=== PATIENT | female | born 1940 | race Caucasian/White ===

== ENCOUNTER 2022-04-17 12:40 | Inpatient (IN) | payer MEDICARE, OTHER ==
[~2022-04-17] VITALS: Ht 157.5 cm; Wt 68.0 kg
[2022-04-17] MEDS ORDERED: IV NS 1000 ML 500 ML IV ONE (13:30)
[2022-04-17] MEDS ORDERED: LOSA50TA39 PO (14:07)
[2022-04-17] MEDS ORDERED: LOSA1TAB15 PO (14:07)
[2022-04-17] MEDS ORDERED: LEVO75TA7 PO (14:07)
[2022-04-17 14:11] LABS: HEMATOCRIT 31.7 % (31.2-41.9); MEAN CORPUSCULAR HEMOGLOBIN 31.1 uug (24.7-32.8); PLATELET COUNT (AUTO) 219 K/uL (179-408)
[2022-04-17 14:28] LABS: CARBON DIOXIDE 25 mmol/L (21-32); CHLORIDE 102 mmol/L (98-107); CREATININE 1.5 mg/dL (0.6-1.3); GLUCOSE 189 mg/dL (74-106); POTASSIUM 3.9 mmol/L (3.5-5.1); UREA NITROGEN, BLOOD 53 mg/dL (7-18)
[2022-04-17 14:37] LABS: ALANINE AMINOTRANSFERASE 18 U/L (14-59); ALKALINE PHOSPHATASE 68 U/L (50-136); ASPARTATE AMINOTRANSFERASE 7 U/L (15-37); BILIRUBIN,DIRECT 0.1 mg/dL (0.0-0.2); BILIRUBIN,TOTAL 0.3 mg/dL (0.2-1.0); TOTAL PROTEIN, SERUM 7.2 g/dL (6.4-8.2)
[2022-04-17] MEDS ORDERED: IV NORMAL SALINE 500 ML IV ONE (15:15)
--- NOTE | 2022-04-17 16:15 | NUR ---
pt got up to use restroom with her dtr, while in bathroom she had a large bloody dark stool. notified and stool sample collected. urine collected as well, both specimens sent to lab. pt denies pain, denies dizziness or SOB. VS WNL.
[2022-04-17 16:41] LABS: *OCCULT BLOOD STOOL POSITIVE (NEGATIVE)
[2022-04-17 16:45] LABS: *BILIRUBIN,URIN NEGATIVE (NEGATIVE); *BLOOD, URINE NEGATIVE (NEGATIVE); *CLARITY,URINE CLEAR (CLEAR); *COLOR,URINE LIGHT YELLOW (YELLOW); *KETONES,URINE NEGATIVE (NEGATIVE); *UROBILINOGEN,URINE 0.2 E.U./dl (NORMAL); LEUKOCYTE ESTERASE ,URINE 1+ (NEGATIVE); NITRITE, URINE NEGATIVE (NEGATIVE); PH,URINE 5.5 (5.0-8.0); UGLUCOSE NEGATIVE (NEGATIVE)
[2022-04-17] MEDS ORDERED: PANTOPRAZOLE SODIUM IV 80 MG in IV DEXTROSE 5% 100 ML IV ONE (17:00)
--- NOTE | 2022-04-17 17:00 | NUR ---
spoke to Sindhu RN house sup for midline nurse. ETA 30 mins.
[2022-04-17 17:12] LABS: HEMATOCRIT 32.3 % (31.2-41.9); MEAN CORPUSCULAR HEMOGLOBIN 30.4 uug (24.7-32.8); MEAN CORPUSCULAR VOLUME 93.1 fL (75.5-95.3); PLATELET COUNT (AUTO) 224 K/uL (179-408)
[2022-04-17 17:30] LABS: BACTERIA,URINE FEW /HPF (NONE SEEN); RBC,URINE NONE SEEN /HPF (0-3); SQUAMOUS EPITHELIAL CELL,UR MODERATE /HPF (NONE SEEN)
--- NOTE | 2022-04-17 17:32 | NUR ---
midline nurse at bedside, pt in stable condition.
--- NOTE | 2022-04-17 17:35 | NUR ---
midline nurse inserted midline to left upper arm, pt tolerated well and line flushing with ease.
[2022-04-17] MEDS ORDERED: CEFTRIAXONE /D5W 50ML IVPB **ER PYXIS IV ONE (18:26)
[2022-04-17] MEDS ORDERED: CEFTRIAXONE 1 G in IV DEXTROSE 5% 50 ML IV ONE (18:30)
[2022-04-17] MEDS ORDERED: ENALAPRILAT DIHYDRATE 1.25 MG/1 ML VIAL IV PRN (21:00)
[2022-04-17] MEDS ORDERED: ONDANSETRON 4 MG/2 ML VIAL IV PRN (21:00)
[2022-04-17] MEDS ORDERED: ACETAMINOPHEN 650 MG SUPP.RECT RC PRN (21:00)
[2022-04-17] MEDS ORDERED: MORPHINE SULFATE 2 MG/1 ML DISP.SYRIN IV PRN (21:00)
[2022-04-17 21:30] VITALS: BP 141/70
[2022-04-17] MEDS: IV D5/ 0.9% NACL 1,000 ML IV PRN (21:39)
[2022-04-18] VITALS: BP 110/53
[2022-04-18 04:33] VITALS: BP 138/61
[2022-04-18 07:19] LABS: HEMATOCRIT 27.3 % (31.2-41.9); MEAN CORPUSCULAR HEMOGLOBIN 30.7 uug (24.7-32.8); MEAN CORPUSCULAR VOLUME 92.5 fL (75.5-95.3); PLATELET COUNT (AUTO) 190 K/uL (179-408)
[2022-04-18 07:44] LABS: THYROID STIMULATING HORMONE 1.884 mIU/mL (0.358-3.740)
[2022-04-18 07:50] LABS: BILIRUBIN,TOTAL 0.3 mg/dL (0.2-1.0); CREATININE 1.3 mg/dL (0.6-1.3); MAGNESIUM 1.5 mg/dL (1.8-2.4); PHOSPHOROUS 3.9 mg/dL (2.5-4.9); POTASSIUM 3.2 mmol/L (3.5-5.1); TOTAL PROTEIN, SERUM 6.6 g/dL (6.4-8.2)
[2022-04-18] MEDS: PANTOPRAZOLE SODIUM 40 MG VIAL IV SCH ×3 (08:27→20:13)
[2022-04-18] MEDS ORDERED: PANTOPRAZOLE SODIUM 40 MG VIAL IV SCH (09:00)
[2022-04-18] MEDS: POTASSIUM CHLORIDE 50 ML IV SCH ×5 (10:26→15:58)
[2022-04-18] MEDS: MAGNESIUM SULFATE/D5W 100 ML IV SCH ×3 (10:57→12:06)
[2022-04-18 11:14] VITALS: BP 120/67
--- NOTE | 2022-04-18 12:13 | NUR ---
Dr. Becky Sams visited patient @ 1130 hours. Educated and updated patient.
--- NOTE | 2022-04-18 12:15 | NUR ---
Patient has been NPO since admission yesterday 04/17/22.
--- NOTE | 2022-04-18 12:36 | NUR ---
taken to OR per bed
[2022-04-18] MEDS ORDERED: PROPOFOL 200 MG/20 ML BOTTLE IV ONE (13:38)
[2022-04-18] MEDS ORDERED: LIDOCAINE-MPF 2% 5 ML VIAL IJ ONE (13:38)
--- NOTE | 2022-04-18 14:10 | NUR ---
back from RR, pt awake, alert but confused, daughter at bedside, vs stable and continue to monitor, daughter states pt is hungry- gave full liquids and told to do it slowly, able to drink broth given ans some apple juice
[2022-04-18 15:32] VITALS: BP 131/58
--- NOTE | 2022-04-18 16:00 | NUR ---
ambulated in the BR with assist- voided qs, no dizziness and just feels tired , HR 100 BP-112/66
[2022-04-18] MEDS: CEFTRIAXONE 1 G in IV DEXTROSE 5% 50 ML IV SCH (17:28)
--- NOTE | 2022-04-18 18:14 | NUR ---
resting in bed, no distress noted, all needs attended and met,no bleeding noted, call light within reach, daughter at bedside
[2022-04-18 20:00] VITALS: BP 116/71
[2022-04-19] VITALS (10 sets, daily range): BP systolic 109–173; BP diastolic 60–85
[2022-04-19] MEDS: IV D5/ 0.9% NACL 1,000 ML IV PRN ×2 (00:20→11:23)
--- NOTE | 2022-04-19 05:57 | NUR ---
Patient bloody stool X 1 with BRP, report to Roxy Mondragon, observation
[2022-04-19 07:21] LABS: CARBON DIOXIDE 23 mmol/L (21-32); CHLORIDE 106 mmol/L (98-107); CREATININE 1.4 mg/dL (0.6-1.3); GLUCOSE 153 mg/dL (74-106); MAGNESIUM 1.7 mg/dL (1.8-2.4); PHOSPHOROUS 3.6 mg/dL (2.5-4.9); POTASSIUM 3.3 mmol/L (3.5-5.1); UREA NITROGEN, BLOOD 41 mg/dL (7-18)
[2022-04-19 08:05] LABS: MEAN CORPUSCULAR HEMOGLOBIN 31.3 uug (24.7-32.8); MEAN CORPUSCULAR VOLUME 92.1 fL (75.5-95.3); PLATELET COUNT (AUTO) 160 K/uL (179-408)
[2022-04-19] MEDS: PANTOPRAZOLE SODIUM 40 MG VIAL IV SCH ×2 (08:37→21:23)
--- NOTE | 2022-04-19 09:00 | NUR ---
resting in bed, alert but oriented to self only, daughter at bedside, denies of pain, tele SR, reported h/h to hospitalist, to have colonoscopy in am , clear liquid ordered, daughter informed, call light within each
[2022-04-19] MEDS: POTASSIUM CHLORIDE 50 ML IV SCH ×2 (09:35→12:32)
--- NOTE | 2022-04-19 10:00 | NUR ---
kept npo, to have blood transfusion today- daughter informed
[2022-04-19] MEDS: MAGNESIUM SULFATE/D5W 100 ML IV SCH ×2 (10:42→12:33)
--- NOTE | 2022-04-19 11:30 | NUR ---
Jarrod Sams here and spoke to family members re care intensively
[2022-04-19] MEDS ORDERED: GOLYTELY 4000 ML BOTTLE PO ONE (12:00)
--- NOTE | 2022-04-19 12:00 | NUR ---
golytely given as ordered- will continue monitor of intake
--- NOTE | 2022-04-19 14:33 | NUR ---
blood transfusion of PRBC started- VSS-, daughter at bedside- informed of s/s of blood reactions, will monitor closely
--- NOTE | 2022-04-19 14:45 | NUR ---
blood infusing without problem, vss no rashes noted.
--- NOTE | 2022-04-19 16:00 | NUR ---
no problem with Blood transfusion,
--- NOTE | 2022-04-19 17:45 | NUR ---
blood transfusion completed, no reaction noted
--- NOTE | 2022-04-19 18:00 | NUR ---
finished taking golytely- ambulated to BR and had a large amount of liquid old blood stool
[2022-04-19] MEDS: CEFTRIAXONE 1 G in IV DEXTROSE 5% 50 ML IV SCH (18:20)
[2022-04-19 18:45] LABS: HEMATOCRIT 29.3 % (31.2-41.9)
[2022-04-20 00:33] VITALS: BP 153/74
[2022-04-20 04:00] VITALS: BP 139/62
[2022-04-20 07:32] LABS: HEMATOCRIT 25.8 % (31.2-41.9); MEAN CORPUSCULAR HEMOGLOBIN 31.3 uug (24.7-32.8); MEAN CORPUSCULAR VOLUME 92.3 fL (75.5-95.3); PLATELET COUNT (AUTO) 160 K/uL (179-408)
[2022-04-20 08:41] LABS: CREATININE 1.2 mg/dL (0.6-1.3); MAGNESIUM 1.8 mg/dL (1.8-2.4); PHOSPHOROUS 3.3 mg/dL (2.5-4.9); POTASSIUM 3.4 mmol/L (3.5-5.1)
[2022-04-20] MEDS: PANTOPRAZOLE SODIUM 40 MG VIAL IV SCH ×2 (09:26→20:34)
[2022-04-20] MEDS: POTASSIUM CHLORIDE 50 ML IV SCH ×2 (09:27→10:18)
[2022-04-20] MEDS: IV D5/ 0.9% NACL 1,000 ML IV PRN (09:34)
[2022-04-20] MEDS ORDERED: GOLYTELY 4000 ML BOTTLE PO ONE (11:00)
[2022-04-20 11:22] VITALS: BP 153/74
[2022-04-20 15:22] VITALS: BP 158/70
[2022-04-20] MEDS: CEFTRIAXONE 1 G in IV DEXTROSE 5% 50 ML IV SCH (17:13)
--- NOTE | 2022-04-20 18:24 | NUR ---
Patient began another order of golytely. Patient tolerated with numerous amounts of BM's. Stool more clear. Becky [employer]ADER notified. Awaiting time for patient to receive colonoscopy. Patient's daughter at bedside involved in patient's care. Daughter update regarding colonoscopy. IV site patent and intact. Bed left in lowest position with call light within reach. Will endorse information to PM nurse.
[2022-04-20 20:00] VITALS: BP 157/70
[2022-04-21] VITALS: BP 169/84
[2022-04-21] MEDS: IV D5/ 0.9% NACL 1,000 ML IV PRN (06:29)
[2022-04-21 06:55] LABS: CREATININE 1.3 mg/dL (0.6-1.3); POTASSIUM 3.3 mmol/L (3.5-5.1)
[2022-04-21 08:27] LABS: HEMATOCRIT 24.2 % (31.2-41.9); MEAN CORPUSCULAR HEMOGLOBIN 31.2 uug (24.7-32.8); MEAN CORPUSCULAR VOLUME 92.4 fL (75.5-95.3); PLATELET COUNT (AUTO) 167 K/uL (179-408)
[2022-04-21] MEDS: POTASSIUM CHLORIDE 50 ML IV SCH ×3 (08:52→10:48)
[2022-04-21] MEDS: PANTOPRAZOLE SODIUM 40 MG VIAL IV SCH ×2 (08:52→20:23)
[2022-04-21] MEDS ORDERED: LOSARTAN POTASSIUM 50 MG TABLET PO SCH (09:00)
--- NOTE | 2022-04-21 10:49 | NUR ---
Patient to have colonoscopy performed today. Awaiting call from surgery for when patient will be picked up. Family at bedside.
--- NOTE | 2022-04-21 14:22 | NUR ---
Colonoscopy scheduled for 1800. Family notified.
[2022-04-21 16:35] VITALS: BP 172/79
[2022-04-21] MEDS: CEFTRIAXONE 1 G in IV DEXTROSE 5% 50 ML IV SCH (17:07)
--- NOTE | 2022-04-21 17:32 | NUR ---
Patient left unit for colonoscopy.
--- NOTE | 2022-04-21 18:03 | NUR ---
Patient currently in surgical room for colonoscopy with patient's daughter at bedside. IV site patent and intact. Will endorse information to PM nurse.
[2022-04-21] MEDS ORDERED: PROPOFOL 200 MG/20 ML BOTTLE ONE (19:10)
[2022-04-21] MEDS ORDERED: LIDOCAINE-MPF 2% 5 ML VIAL ONE (19:10)
--- NOTE | 2022-04-21 19:11 | NUR ---
Patient back from colonoscopy.
[2022-04-21 20:33] VITALS: BP 156/73
--- NOTE | 2022-04-21 21:53 | NUR ---
Pt discharged in improved condition; Latrell discharged pt; IV removed x2; no bleeding noted; she will send the prescription to patient's pharmacy; pt escorted by wheelchair to car with her children;
[2022-04-22] MEDS ORDERED: AMOX500T2 PO (12:06)
[2022-04-22] MEDS ORDERED: CLAR-45 PO (12:06)
[2022-04-22] MEDS ORDERED: CEPH500C2 PO (12:06)
[2022-04-22] MEDS ORDERED: OMEP20CA15 PO (12:06)
== END 2022-04-21 21:25 | disposition home or self-care (01) | DRG 377 ==
LOC: ER 12:40 → TELE3 20:56
PROVIDERS: ADMIT Internal Medicine; ATTEND Registered Nurse
PROC: 05H633Z Insertion of Infusion Device into Left Subclavian Vein, Percutaneous Approach (ICD-10-PCS; 2022-04-17)
PROC: B547ZZA Ultrasonography of Left Subclavian Vein, Guidance (ICD-10-PCS; 2022-04-17)
PROC: 0DB68ZX Excision of Stomach, Via Natural or Artificial Opening Endoscopic, Diagnostic (ICD-10-PCS; principal; 2022-04-18)
PROC: 05H633Z Insertion of Infusion Device into Left Subclavian Vein, Percutaneous Approach (ICD-10-PCS; 2022-04-19)
PROC: B547ZZA Ultrasonography of Left Subclavian Vein, Guidance (ICD-10-PCS; 2022-04-19)
PROC: 30233N1 Transfusion of Nonautologous Red Blood Cells into Peripheral Vein, Percutaneous Approach (ICD-10-PCS; 2022-04-19)
PROC: 0DB68ZX Excision of Stomach, Via Natural or Artificial Opening Endoscopic, Diagnostic (ICD-10-PCS; 2022-04-21)
PROC: 0DBK8ZZ Excision of Ascending Colon, Via Natural or Artificial Opening Endoscopic (ICD-10-PCS; 2022-04-21)
DX: K26.4 Chronic or unspecified duodenal ulcer with hemorrhage (principal); N17.0 Acute kidney failure with tubular necrosis; E87.20 Acidosis, unspecified; N39.0 Urinary tract infection, site not specified; D62 Acute posthemorrhagic anemia; R55 Syncope and collapse; D64.9 Anemia, unspecified; E03.9 Hypothyroidism, unspecified; E11.9 Type 2 diabetes mellitus without complications; E86.0 Dehydration; E87.6 Hypokalemia; Z20.822 Contact with and (suspected) exposure to COVID-19; F03.90 Unspecified dementia, unspecified severity, without behavioral disturbance, psychotic disturbance, mood disturbance, and anxiety; Z88.2 Allergy status to sulfonamides; I10 Essential (primary) hypertension; E66.9 Obesity, unspecified; Z68.27 Body mass index [BMI] 27.0-27.9, adult; D72.829 Elevated white blood cell count, unspecified; K63.5 Polyp of colon; K57.30 Diverticulosis of large intestine without perforation or abscess without bleeding; K29.70 Gastritis, unspecified, without bleeding; B96.81 Helicobacter pylori [H. pylori] as the cause of diseases classified elsewhere
CPT/HCPCS: 36415; 70450; 71045; 83550; 83605; 83735; 84100; 84443; 84484; 85018; 85025; 85730; 86850; 86900; 86901; 86920; 93005; 93307; A4663; C9113; G0378; J0696; J3475; J3480; J3490; J7040; J7042; P9016